=== PATIENT | female | born 1985 | race Hispanic/Latino ===

== ENCOUNTER 2021-05-04 21:42 | Inpatient (IN) | payer OTHER ==
[~2021-05-04] VITALS: Ht 149.9 cm; Wt 75.3 kg
[2021-05-04] MEDS ORDERED: SODIUM CHLORIDE 0.9% 1000ML 1,000 ML IV STA (21:54)
[2021-05-04] MEDS: FENTANYL CITRATE/PF 100MCG/2 ML INJ IV PRN ×2 (22:07→23:26)
[2021-05-04] MEDS: ONDANSETRON HCL INJ 2MG/ML 2ML 2 MG/ML VIAL IV PRN (22:07)
[2021-05-04 22:08] LABS: BASOPHILS % 0.5 % (0.0-1.0); EOSINOPHILS # (AUTO) 0.1 (0.0-0.4); EOSINOPHILS % 1.2 % (0.0-6.0); HEMATOCRIT 39.1 % (34.2-44.1); HEMOGLOBIN 12.1 g/dL (12.0-16.0); LYMPHOCYTES # (AUTO) 1.7 (1.0-3.2); LYMPHOCYTES % 20.1 % (18.0-39.1); MEAN CORPUSCULAR HEMOGLOBIN 24.3 pg (28-32); MEAN CORPUSCULAR HGB CONC 30.9 g/dL (31-35); MEAN CORPUSCULAR VOLUME 78.7 fL (81-99); MONOCYTES # (AUTO) 0.6 (0.2-0.8); MONOCYTES % 7.4 % (4.4-11.3); NEUTROPHILS # (AUTO) 6.1 (2.1-6.9); NEUTROPHILS % 70.6 % (38.7-80.0); PLATELET COUNT 293 x10e3/uL (140-360); RED BLOOD COUNT 4.97 x10e6/uL (3.6-5.1); RED CELL DISTRIBUTION WIDTH 17.2 % (11.7-14.4)
[2021-05-04] MEDS ORDERED: ONDANSETRON HCL INJ 2MG/ML 2ML 2 MG/ML VIAL ONE (22:09)
[2021-05-04] MEDS ORDERED: SODIUM CHLORIDE 0.9% 1000ML 1,000 ML ONE (22:09)
[2021-05-04] MEDS ORDERED: FENTANYL CITRATE/PF 100MCG/2 ML INJ ONE (22:09)
[2021-05-04 22:16] LABS: CLARITY,URINE CLOUDY (CLEAR); COLOR,URINE YELLOW (YELLOW); KETONES,URINE 2+ (NEGATIVE); LEUKOCYTE ESTERASE ,URINE 1+ (NEGATIVE); NITRITE,URINE NEGATIVE (NEGATIVE); PROTEIN,URINE DIPSTICK 1+ (NEGATIVE); URINE UROBILINOGEN 0.2 mg/dL (0.2 - 1)
[2021-05-04] MEDS ORDERED: DIATRIZOATE MEGL/DIATRIZOA SOD 30 ML BTL PO ONE (22:24)
[2021-05-04 22:25] LABS: ALBUMIN 4.1 g/dL (3.5-5.0); ALBUMIN/GLOBULIN RATIO 1.2 (0.8-2.0); ANION GAP 15.7 mmol/L (8-16); CALCIUM 9.2 mg/dL (8.4-10.2); CREATININE, SERUM 0.91 mg/dL (0.57-1.11); POTASSIUM 3.7 mmol/L (3.5-5.1)
[2021-05-04 22:35] LABS: BACTERIA,URINE MANY /HPF; EPITHELIAL CELLS,URINE MANY /LPF; MUCUS,URINE MANY (RARE); RBC,URINE >50 /HPF (0-5); TRANSITIONAL EPI CELLS,URINE MODERATE; WBC,URINE (MAN) >50 /HPF (0-5)
[2021-05-04] MEDS ORDERED: IOPAMIDOL 370 MG/ML 200 ML INFUS..BTL INJ ONE (23:31)
[2021-05-04] MEDS ORDERED: SODIUM CHLORIDE 0.9% 50ML 50 ML ONE (23:31)
[2021-05-05] VITALS (9 sets, daily range): BP systolic 89–125; BP diastolic 50–84
[2021-05-05] MEDS ORDERED: CEFTRIAXONE 1 GM VIAL IV ONE
[2021-05-05] MEDS ORDERED: CEFTRIAXONE 1 GM in SODIUM CHLORIDE 0.9% 50ML 50 ML IV ONE (00:01)
[2021-05-05] MEDS ORDERED: ONDANSETRON HCL INJ 2MG/ML 2ML 2 MG/ML VIAL IV PRN (00:30)
[2021-05-05] MEDS ORDERED: ZONISAMIDE100 MG PO (01:01)
[2021-05-05] MEDS: SODIUM CHLORIDE 0.9% 1000ML 1,000 ML IV SCH ×4 (02:13→23:36)
[2021-05-05] MEDS: Morphine 4mg Syringe 4 MG/ML INJ IV PRN ×4 (02:13→21:46)
[2021-05-05] MEDS: ONDANSETRON HCL INJ 2MG/ML 2ML 2 MG/ML VIAL IV PRN ×4 (03:26→17:41)
[2021-05-05] MEDS ORDERED: MULTI-VITAMIN1 EACH PO (04:23)
[2021-05-05] MEDS: PROMETHAZINE 12.5MG/ NACL 0.9% 12.5 MG/50 ML BAG IV PRN (07:19)
[2021-05-05] MEDS: ZONISAMIDE 50 MG CAP PO SCH (20:20)
[2021-05-05] MEDS: HEPARIN SOD (PORCINE) 5,000 UNIT/ML VIAL SC SCH (20:24)
[2021-05-05] MEDS ORDERED: DIPHENHYDRAMINE HCL 25 MG CAP PO PRN (22:00)
[2021-05-06] VITALS (9 sets, daily range): BP systolic 88–110; BP diastolic 53–80
[2021-05-06 05:27] LABS: BASOPHILS % 0.6 % (0.0-1.0); EOSINOPHILS # (AUTO) 0.2 (0.0-0.4); EOSINOPHILS % 3.7 % (0.0-6.0); HEMATOCRIT 37.5 % (34.2-44.1); HEMOGLOBIN 11.2 g/dL (12.0-16.0); LYMPHOCYTES # (AUTO) 1.8 (1.0-3.2); LYMPHOCYTES % 32.7 % (18.0-39.1); MEAN CORPUSCULAR HEMOGLOBIN 23.8 pg (28-32); MEAN CORPUSCULAR HGB CONC 29.9 g/dL (31-35); MEAN CORPUSCULAR VOLUME 79.8 fL (81-99); MONOCYTES # (AUTO) 0.4 (0.2-0.8); MONOCYTES % 7.9 % (4.4-11.3); NEUTROPHILS % 54.7 % (38.7-80.0); PLATELET COUNT 243 x10e3/uL (140-360); RED CELL DISTRIBUTION WIDTH 17.6 % (11.7-14.4)
[2021-05-06 06:00] LABS: ALBUMIN 3.3 g/dL (3.5-5.0); ALBUMIN/GLOBULIN RATIO 1.2 (0.8-2.0); ANION GAP 15.6 mmol/L (8-16); CALCIUM 8.6 mg/dL (8.4-10.2); CREATININE, SERUM 0.78 mg/dL (0.57-1.11); POTASSIUM 3.6 mmol/L (3.5-5.1)
[2021-05-06] MEDS ORDERED: DEXTROSE 50% SYRINGE 50 ML IV ONE (06:30)
[2021-05-06] MEDS: Morphine 4mg Syringe 4 MG/ML INJ IV PRN ×2 (06:42→10:45)
[2021-05-06] MEDS: DEXTROSE 5%/0.9% SOD CHL 1,000 ML IV SCH ×2 (06:46→14:08)
[2021-05-06] MEDS: HEPARIN SOD (PORCINE) 5,000 UNIT/ML VIAL SC SCH ×2 (09:00→20:08)
[2021-05-06] MEDS: ONDANSETRON HCL INJ 2MG/ML 2ML 2 MG/ML VIAL IV PRN (10:45)
[2021-05-06] MEDS: PROMETHAZINE 12.5MG/ NACL 0.9% 12.5 MG/50 ML BAG IV PRN (14:08)
[2021-05-06] MEDS ORDERED: ACETAMIN/BUTALBITAL/CAFFEINE TAB PO PRN (14:30)
[2021-05-06] MEDS ORDERED: NAPROXEN 250 MG TAB PO PRN (14:30)
[2021-05-06] MEDS: Morphine 2mg Syringe 2 MG/ML SYR IV PRN ×2 (18:20→22:32)
[2021-05-06] MEDS: ZONISAMIDE 50 MG CAP PO SCH (20:05)
[2021-05-07] VITALS (7 sets, daily range): BP systolic 90–110; BP diastolic 57–78
[2021-05-07] MEDS: DEXTROSE 5%/0.9% SOD CHL 1,000 ML IV SCH ×3 (00:02→18:09)
[2021-05-07] MEDS: Morphine 2mg Syringe 2 MG/ML SYR IV PRN ×4 (02:45→21:25)
[2021-05-07] MEDS: HEPARIN SOD (PORCINE) 5,000 UNIT/ML VIAL SC SCH ×2 (09:00→20:20)
[2021-05-07] MEDS ORDERED: BUPIVACAINE HCL 0.5% INJ 30 ML VIAL INJ ONE (09:15)
[2021-05-07] MEDS ORDERED: ACETAMINOPHEN 1000 MG/100 ML 100 ML IV ONE (11:50)
[2021-05-07] MEDS ORDERED: LIDOCAINE HCL 2% LOCAL INJ 5 ML SDV VIAL INJ ONE (12:01)
[2021-05-07] MEDS ORDERED: KETOROLAC TROMETHAMINE 30 MG/ML VIAL ONE (12:01)
[2021-05-07] MEDS ORDERED: ONDANSETRON HCL INJ 2MG/ML 2ML 2 MG/ML VIAL ONE (12:01)
[2021-05-07] MEDS ORDERED: ROCURONIUM BROMIDE 10 MG/ML 5ML VIAL IV ONE (12:01)
[2021-05-07] MEDS ORDERED: NEOSTIGMINE 1 MG/ML 10ML VIAL ONE (12:01)
[2021-05-07] MEDS ORDERED: SEVOFLURANE INHAL SOLN 250 ML PEN BTL ONE (12:01)
[2021-05-07] MEDS ORDERED: DEXAMETHASONE SOD PHOS INJ 4 MG/ML SDV ONE (12:01)
[2021-05-07] MEDS ORDERED: PROPOFOL IV EMULSION 10 MG/ML 20 ML VIAL ONE (12:01)
[2021-05-07] MEDS ORDERED: POVIDONE IODINE 0.05% 0.05 % ML PO ONE (12:01)
[2021-05-07] MEDS ORDERED: GLYCOPYRROLATE INJ 0.2 MG/ML VIAL ONE (12:01)
[2021-05-07] MEDS ORDERED: HYDROMORPHONE 1MG/1ML INJ ONE (12:03)
[2021-05-07] MEDS ORDERED: FENTANYL CITRATE/PF 100MCG/2 ML INJ ONE (12:16)
[2021-05-07] MEDS ORDERED: MIDAZOLAM HCL 2 MG/2 ML VIAL ONE (12:16)
[2021-05-07] MEDS ORDERED: MEPERIDINE HCL INJ 25 MG/ML VIAL ONE (14:03)
[2021-05-07] MEDS: ONDANSETRON HCL INJ 2MG/ML 2ML 2 MG/ML VIAL IV PRN (17:05)
[2021-05-07] MEDS: HYDROCODONE/APAP 7.5MG-325MG 1 EA TAB PO PRN (18:14)
[2021-05-07] MEDS: PROMETHAZINE 12.5MG/ NACL 0.9% 12.5 MG/50 ML BAG IV PRN (20:20)
[2021-05-07] MEDS: ZONISAMIDE 50 MG CAP PO SCH (21:00)
[2021-05-08] VITALS (8 sets, daily range): BP systolic 94–105; BP diastolic 55–81
[2021-05-08] MEDS: HYDROCODONE/APAP 7.5MG-325MG 1 EA TAB PO PRN (00:49)
[2021-05-08] MEDS: Morphine 2mg Syringe 2 MG/ML SYR IV PRN ×3 (01:26→20:34)
[2021-05-08] MEDS: DEXTROSE 5%/0.9% SOD CHL 1,000 ML IV SCH ×4 (02:21→23:36)
[2021-05-08 05:06] LABS: BASOPHILS % 0.1 % (0.0-1.0); EOSINOPHILS % 0.1 % (0.0-6.0); HEMATOCRIT 34.2 % (34.2-44.1); HEMOGLOBIN 10.6 g/dL (12.0-16.0); LYMPHOCYTES # (AUTO) 1.5 (1.0-3.2); LYMPHOCYTES % 20.3 % (18.0-39.1); MEAN CORPUSCULAR HEMOGLOBIN 24.3 pg (28-32); MEAN CORPUSCULAR VOLUME 78.3 fL (81-99); MONOCYTES # (AUTO) 0.6 (0.2-0.8); MONOCYTES % 8.1 % (4.4-11.3); NEUTROPHILS # (AUTO) 5.1 (2.1-6.9); NEUTROPHILS % 71.1 % (38.7-80.0); PLATELET COUNT 236 x10e3/uL (140-360); RED BLOOD COUNT 4.37 x10e6/uL (3.6-5.1)
[2021-05-08 05:39] LABS: ANION GAP 10.2 mmol/L (8-16); BLOOD UREA NITROGEN < 5 mg/dL (7-26); CALCIUM 8.1 mg/dL (8.4-10.2); CARBON DIOXIDE 17 mmol/L (22-29); CHLORIDE 116 mmol/L (98-107); EST GLOMERULAR FILTRATION RATE 96 ML/MIN (60-); GLUCOSE 112 mg/dL (74-118); POTASSIUM 3.2 mmol/L (3.5-5.1); SODIUM 140 mmol/L (136-145)
[2021-05-08 05:49] LABS: BUN/CREATININE RATIO 7 (6-25)
[2021-05-08] MEDS: HEPARIN SOD (PORCINE) 5,000 UNIT/ML VIAL SC SCH ×2 (08:59→20:34)
[2021-05-08] MEDS: ONDANSETRON HCL INJ 2MG/ML 2ML 2 MG/ML VIAL IV PRN ×3 (09:30→20:34)
[2021-05-08] MEDS: TRAMADOL HCL 50 MG TAB PO PRN ×2 (12:02→19:40)
[2021-05-08] MEDS: ZONISAMIDE 50 MG CAP PO SCH (20:34)
[2021-05-09] MEDS: Morphine 2mg Syringe 2 MG/ML SYR IV PRN ×2 (00:41→15:48)
[2021-05-09] MEDS: ONDANSETRON HCL INJ 2MG/ML 2ML 2 MG/ML VIAL IV PRN ×3 (00:41→15:48)
[2021-05-09 00:56] VITALS: BP 112/65
[2021-05-09] MEDS: HYDROCODONE/APAP 7.5MG-325MG 1 EA TAB PO PRN ×2 (02:56→18:40)
[2021-05-09 05:56] VITALS: BP 92/61
[2021-05-09] MEDS: DEXTROSE 5%/0.9% SOD CHL 1,000 ML IV SCH ×2 (08:08→15:48)
[2021-05-09] MEDS: HEPARIN SOD (PORCINE) 5,000 UNIT/ML VIAL SC SCH ×2 (09:52→21:04)
[2021-05-09 09:54] VITALS: BP 94/55
[2021-05-09] MEDS: PROMETHAZINE 12.5MG/ NACL 0.9% 12.5 MG/50 ML BAG IV PRN (11:18)
[2021-05-09] MEDS ORDERED: BISACODYL 10 MG SUPP PR ONE (13:30)
[2021-05-09 20:00] VITALS: BP 100/66
[2021-05-10] VITALS: BP 98/70
[2021-05-10] MEDS: ZONISAMIDE 50 MG CAP PO SCH (01:35)
[2021-05-10 04:00] VITALS: BP 102/66
[2021-05-10 05:10] LABS: BASOPHILS % 0.5 % (0.0-1.0); EOSINOPHILS # (AUTO) 0.3 (0.0-0.4); HEMATOCRIT 34.3 % (34.2-44.1); HEMOGLOBIN 11.1 g/dL (12.0-16.0); LYMPHOCYTES # (AUTO) 2.4 (1.0-3.2); LYMPHOCYTES % 38.7 % (18.0-39.1); MEAN CORPUSCULAR HEMOGLOBIN 24.3 pg (28-32); MEAN CORPUSCULAR HGB CONC 32.4 g/dL (31-35); MEAN CORPUSCULAR VOLUME 75.2 fL (81-99); MONOCYTES # (AUTO) 0.6 (0.2-0.8); MONOCYTES % 8.9 % (4.4-11.3); NEUTROPHILS % 47.6 % (38.7-80.0); PLATELET COUNT 234 x10e3/uL (140-360); RED BLOOD COUNT 4.56 x10e6/uL (3.6-5.1); RED CELL DISTRIBUTION WIDTH 18.8 % (11.7-14.4)
[2021-05-10 05:55] LABS: ANION GAP 11.1 mmol/L (8-16); BLOOD UREA NITROGEN < 5 mg/dL (7-26); CALCIUM 8.3 mg/dL (8.4-10.2); CARBON DIOXIDE 16 mmol/L (22-29); CHLORIDE 116 mmol/L (98-107); CREATININE, SERUM 0.72 mg/dL (0.57-1.11); EST GLOMERULAR FILTRATION RATE 93 ML/MIN (60-); GLUCOSE 90 mg/dL (74-118); POTASSIUM 3.1 mmol/L (3.5-5.1); SODIUM 140 mmol/L (136-145)
[2021-05-10 06:14] LABS: BUN/CREATININE RATIO 7 (6-25)
[2021-05-10 06:37] VITALS: BP 102/66
[2021-05-10 07:28] VITALS: BP 98/65
[2021-05-10 08:00] VITALS: BP 98/65
[2021-05-10] MEDS: DEXTROSE 5%/0.9% SOD CHL 1,000 ML IV SCH (08:32)
[2021-05-10] MEDS: HEPARIN SOD (PORCINE) 5,000 UNIT/ML VIAL SC SCH (09:00)
[2021-05-10 11:14] VITALS: BP 101/71
[2021-05-10] MEDS ORDERED: POTASSIUM CHLORIDE 20 MEQ TAB CR PO ONE (14:00)
[2021-05-10] MEDS: HYDROCODONE/APAP 7.5MG-325MG 1 EA TAB PO PRN (19:10)
== END 2021-05-10 19:00 | disposition home or self-care (01) | DRG 419 ==
LOC: ER 21:55 → ERHOLD 05-05 00:46 → MED/SURG2 05-05 03:00
PROVIDERS: ADMIT Internal Medicine; ATTEND Internal Medicine
PROC: 0FT44ZZ Resection of Gallbladder, Percutaneous Endoscopic Approach (ICD-10-PCS; principal; 2021-05-07 11:00)
DX: K81.0 Acute cholecystitis (principal); E66.9 Obesity, unspecified; G40.909 Epilepsy, unspecified, not intractable, without status epilepticus; Z72.0 Tobacco use; Z98.84 Bariatric surgery status; Z68.33 Body mass index [BMI] 33.0-33.9, adult; E16.2 Hypoglycemia, unspecified; Z20.822 Contact with and (suspected) exposure to COVID-19
CPT/HCPCS: 36415; 74177; 76705; 78227; 80048; 80053; 81001; 82948; 83690; 84702; 85025; 87086; 88304; 94799; 96360; 99284; A9537; J0690; J0696; J1100; J1170; J1644; J1885; J2001; J2175; J2250; J2270; J2405; J2550; J2710; J3010; J7030; J7042; J7799; Q9967; U0002

== ENCOUNTER 2021-08-02 23:31 | Emergency (ER) | payer BC, OTHER ==
[~2021-08-02] VITALS: Ht 149.9 cm; Wt 72.1 kg
[~2021-08-02 23:31] MED LIST: MULTI-VITAMIN1 EACH PO; ZONISAMIDE100 MG PO
[2021-08-03 00:03] LABS: BASOPHILS % 0.3 % (0.0-1.0); EOSINOPHILS # (AUTO) 0.1 (0.0-0.4); EOSINOPHILS % 1.4 % (0.0-6.0); HEMATOCRIT 35.7 % (34.2-44.1); HEMOGLOBIN 11.4 g/dL (12.0-16.0); LYMPHOCYTES # (AUTO) 2.8 (1.0-3.2); LYMPHOCYTES % 29.6 % (18.0-39.1); MEAN CORPUSCULAR HEMOGLOBIN 25.1 pg (28-32); MEAN CORPUSCULAR HGB CONC 31.9 g/dL (31-35); MEAN CORPUSCULAR VOLUME 78.5 fL (81-99); MONOCYTES # (AUTO) 0.6 (0.2-0.8); MONOCYTES % 5.9 % (4.4-11.3); NEUTROPHILS # (AUTO) 5.9 (2.1-6.9); NEUTROPHILS % 62.6 % (38.7-80.0); PLATELET COUNT 341 x10e3/uL (140-360); RED BLOOD COUNT 4.55 x10e6/uL (3.6-5.1); RED CELL DISTRIBUTION WIDTH 17.2 % (11.7-14.4)
[2021-08-03 00:17] LABS: CLARITY,URINE CLOUDY (CLEAR); COLOR,URINE YELLOW (YELLOW); KETONES,URINE NEGATIVE (NEGATIVE); LEUKOCYTE ESTERASE ,URINE SMALL (NEGATIVE); NITRITE,URINE NEGATIVE (NEGATIVE); PROTEIN,URINE DIPSTICK NEGATIVE (NEGATIVE); URINE UROBILINOGEN 0.2 mg/dL (0.2 - 1)
[2021-08-03 00:21] LABS: AMORPHOUS SEDIMENT,URINE MANY (FEW); BACTERIA,URINE FEW /HPF; EPITHELIAL CELLS,URINE MANY /LPF; RBC,URINE 0-5 /HPF (0-5)
[2021-08-03 00:24] LABS: ALBUMIN 3.5 g/dL (3.5-5.0); ALBUMIN/GLOBULIN RATIO 1.1 (0.8-2.0); ANION GAP 10.4 mmol/L (8-16); CALCIUM 7.9 mg/dL (8.4-10.2); CREATININE, SERUM 0.78 mg/dL (0.57-1.11); POTASSIUM 3.4 mmol/L (3.5-5.1)
[2021-08-03] MEDS ORDERED: KETOROLAC TROMETHAMINE 30 MG/ML VIAL IV STA (00:27)
[2021-08-03] MEDS ORDERED: IOPAMIDOL 370 MG/ML 100 ML INFUS..BTL INJ ONE (00:39)
[2021-08-03] MEDS ORDERED: ONDANSETRON HCL INJ 2MG/ML 2ML 2 MG/ML VIAL IV STA (00:58)
[2021-08-03] MEDS ORDERED: Morphine 4mg Syringe 4 MG/ML INJ IV STA (00:58)
[2021-08-03] MEDS ORDERED: ONDANSETRON HCL INJ 2MG/ML 2ML 2 MG/ML VIAL ONE (01:24)
[2021-08-03] MEDS ORDERED: Morphine 2mg Syringe 2 MG/ML SYR ONE (01:25)
[2021-08-03] MEDS ORDERED: HYDROMORPHONE 1MG/1ML INJ IV STA (01:47)
[2021-08-03 02:01] LABS: AMPHETAMINES SCREEN,URINE NEGATIVE (NEGATIVE); BENZODIAZEPINES SCREEN,URINE NEGATIVE (NEGATIVE); PHENCYCLIDINE SCREEN,URINE NEGATIVE (NEGATIVE)
[2021-08-03] MEDS ORDERED: HYDROMORPHONE 1MG/1ML INJ ONE (02:03)
[2021-08-03 02:21] LABS: CREATINE KINASE 29 IU/L (29-168)
[2021-08-03] MEDS ORDERED: ACETAMINOPHEN-1 EAC4 PO (03:36)
[2021-08-03] MEDS ORDERED: ONDANSETRON ODT4 MG PO (03:36)
== END 2021-08-03 04:00 | disposition home or self-care (01) ==
LOC: ER 23:35
DX: R10.32 Left lower quadrant pain (principal); N83.202 Unspecified ovarian cyst, left side; N83.201 Unspecified ovarian cyst, right side; G40.909 Epilepsy, unspecified, not intractable, without status epilepticus; Z98.84 Bariatric surgery status; R94.31 Abnormal electrocardiogram [ECG] [EKG]
CPT/HCPCS: 36415; 74177; 76830; 76856; 80053; 80307; 81001; 82550; 82553; 83690; 84484; 84702; 85025; 93005; 99284; J1170; J1885; J2270; J2405; Q9967

== ENCOUNTER 2021-08-06 22:42 | Emergency (ER) | payer BC, OTHER ==
[~2021-08-06] VITALS: Ht 149.9 cm; Wt 72.1 kg
[~2021-08-06 22:42] MED LIST changes: +ACETAMINOPHEN-1 EAC4 PO; +ONDANSETRON ODT4 MG PO
[2021-08-06 23:46] LABS: CLARITY,URINE CLOUDY (CLEAR); COLOR,URINE YELLOW (YELLOW); KETONES,URINE NEGATIVE (NEGATIVE); LEUKOCYTE ESTERASE ,URINE NEGATIVE (NEGATIVE); NITRITE,URINE NEGATIVE (NEGATIVE); PROTEIN,URINE DIPSTICK NEGATIVE (NEGATIVE)
[2021-08-06 23:53] LABS: AMORPHOUS SEDIMENT,URINE MANY (FEW); BACTERIA,URINE FEW /HPF; EPITHELIAL CELLS,URINE MANY /LPF; RBC,URINE 0-5 /HPF (0-5); WBC,URINE (MAN) 0-5 /HPF (0-5)
[2021-08-07 00:59] LABS: BASOPHILS % 0.3 % (0.0-1.0); EOSINOPHILS # (AUTO) 0.1 (0.0-0.4); EOSINOPHILS % 1.8 % (0.0-6.0); HEMATOCRIT 37.4 % (34.2-44.1); HEMOGLOBIN 11.8 g/dL (12.0-16.0); LYMPHOCYTES # (AUTO) 1.5 (1.0-3.2); LYMPHOCYTES % 22.3 % (18.0-39.1); MEAN CORPUSCULAR HEMOGLOBIN 25.1 pg (28-32); MEAN CORPUSCULAR HGB CONC 31.6 g/dL (31-35); MEAN CORPUSCULAR VOLUME 79.4 fL (81-99); MONOCYTES # (AUTO) 0.5 (0.2-0.8); MONOCYTES % 7.3 % (4.4-11.3); NEUTROPHILS # (AUTO) 4.5 (2.1-6.9); NEUTROPHILS % 68.1 % (38.7-80.0); PLATELET COUNT 278 x10e3/uL (140-360); RED BLOOD COUNT 4.71 x10e6/uL (3.6-5.1); RED CELL DISTRIBUTION WIDTH 17.4 % (11.7-14.4)
[2021-08-07 01:16] LABS: ALBUMIN 3.3 g/dL (3.5-5.0); ANION GAP 11.3 mmol/L (8-16); CALCIUM 8.5 mg/dL (8.4-10.2); CREATININE, SERUM 0.78 mg/dL (0.57-1.11); POTASSIUM 3.3 mmol/L (3.5-5.1)
[2021-08-07] MEDS ORDERED: DONNATAL/LIDOCAINE/MAALOX 30 ML SUSP PO SCH (09:00)
== END 2021-08-07 02:25 | disposition home or self-care (01) ==
LOC: ER 23:28
DX: R10.13 Epigastric pain (principal); N83.202 Unspecified ovarian cyst, left side; N83.201 Unspecified ovarian cyst, right side; G40.909 Epilepsy, unspecified, not intractable, without status epilepticus; Z98.84 Bariatric surgery status
CPT/HCPCS: 36415; 80053; 81001; 83690; 84702; 85025; 99283

== ENCOUNTER 2021-09-29 19:02 | Inpatient (IN) | payer BC, OTHER ==
[~2021-09-29] VITALS: Ht 149.9 cm; Wt 72.1 kg
[2021-09-29 19:46] LABS: AMPHETAMINES SCREEN,URINE NEGATIVE (NEGATIVE); BENZODIAZEPINES SCREEN,URINE NEGATIVE (NEGATIVE); CLARITY,URINE CLOUDY (CLEAR); COLOR,URINE YELLOW (YELLOW); PHENCYCLIDINE SCREEN,URINE NEGATIVE (NEGATIVE)
[2021-09-29 19:47] LABS: KETONES,URINE NEGATIVE (NEGATIVE); LEUKOCYTE ESTERASE ,URINE 1+ (NEGATIVE); NITRITE,URINE NEGATIVE (NEGATIVE); PROTEIN,URINE DIPSTICK NEGATIVE (NEGATIVE)
[2021-09-29 19:48] LABS: URINE UROBILINOGEN 1 mg/dL (0.2 - 1)
[2021-09-29 19:50] LABS: BACTERIA,URINE MANY /HPF; CALCIUM OXALATE CRYSTALS,UR MANY (FEW); EPITHELIAL CELLS,URINE FEW /LPF; RBC,URINE >50 /HPF (0-5); WBC,URINE (MAN) >50 /HPF (0-5)
[2021-09-29] MEDS ORDERED: KETOROLAC TROMETHAMINE 30 MG/ML VIAL IV STA (19:50)
[2021-09-29] MEDS ORDERED: ONDANSETRON HCL INJ 2MG/ML 2ML 2 MG/ML VIAL IV STA ×2 (19:50→20:20)
[2021-09-29 19:55] LABS: BASOPHILS % 0.5 % (0.0-1.0); EOSINOPHILS # (AUTO) 0.1 (0.0-0.4); EOSINOPHILS % 2.3 % (0.0-6.0); HEMATOCRIT 38.7 % (34.2-44.1); HEMOGLOBIN 11.9 g/dL (12.0-16.0); LYMPHOCYTES # (AUTO) 1.8 (1.0-3.2); LYMPHOCYTES % 40.9 % (18.0-39.1); MEAN CORPUSCULAR HEMOGLOBIN 25.8 pg (28-32); MEAN CORPUSCULAR HGB CONC 30.7 g/dL (31-35); MEAN CORPUSCULAR VOLUME 83.9 fL (81-99); MONOCYTES # (AUTO) 0.4 (0.2-0.8); MONOCYTES % 8.2 % (4.4-11.3); NEUTROPHILS # (AUTO) 2.1 (2.1-6.9); NEUTROPHILS % 47.9 % (38.7-80.0); PLATELET COUNT 254 x10e3/uL (140-360); RED BLOOD COUNT 4.61 x10e6/uL (3.6-5.1)
[2021-09-29] MEDS ORDERED: SODIUM CHLORIDE 0.9% 1000ML 1,000 ML IV ONE (20:00)
[2021-09-29 20:12] LABS: ALBUMIN 3.4 g/dL (3.5-5.0); ALBUMIN/GLOBULIN RATIO 1.1 (0.8-2.0); ANION GAP 12.5 mmol/L (8-16); CALCIUM 8.3 mg/dL (8.4-10.2); CREATININE, SERUM 0.8 mg/dL (0.57-1.11); POTASSIUM 3.5 mmol/L (3.5-5.1)
[2021-09-29] MEDS ORDERED: Morphine 4mg INJECTION 4 MG/ML INJ IV ONE (20:30)
[2021-09-29] MEDS ORDERED: ONDANSETRON HCL INJ 2MG/ML 2ML 2 MG/ML VIAL ONE (20:35)
[2021-09-29] MEDS ORDERED: Morphine 4mg INJECTION 4 MG/ML INJ ONE (20:35)
[2021-09-29] MEDS ORDERED: IOPAMIDOL 370 MG/ML 100 ML INFUS..BTL INJ ONE (20:48)
[2021-09-29] MEDS ORDERED: PROMETHAZINE 12.5MG/ NACL 0.9% 12.5 MG/50 ML BAG IV ONE ×2 (22:15)
[2021-09-29] MEDS ORDERED: FENTANYL CITRATE/PF 100MCG/2 ML INJ IV ONE (22:15)
[2021-09-29] MEDS ORDERED: FENTANYL CITRATE/PF 100MCG/2 ML INJ ONE (22:30)
[2021-09-30] VITALS (9 sets, daily range): BP systolic 100–129; BP diastolic 62–82
[2021-09-30] MEDS ORDERED: PROMETHAZINE 12.5MG/ NACL 0.9% 12.5 MG/50 ML BAG IV PRN
[2021-09-30] MEDS ORDERED: Morphine 4mg INJECTION 4 MG/ML INJ IV PRN
[2021-09-30] MEDS: SODIUM CHLORIDE 0.9% 1000ML 1,000 ML IV SCH ×3 (01:20→16:00)
[2021-09-30] MEDS: ONDANSETRON HCL INJ 2MG/ML 2ML 2 MG/ML VIAL IV PRN (01:39)
[2021-09-30] MEDS: HYDROMORPHONE 1MG/1ML INJ IV PRN ×6 (03:22→20:45)
[2021-09-30] MEDS: ACETAMINOPHEN 325 MG TAB PO PRN ×3 (05:36→16:39)
[2021-09-30 05:47] LABS: BASOPHILS % 0.5 % (0.0-1.0); EOSINOPHILS # (AUTO) 0.1 (0.0-0.4); EOSINOPHILS % 2.3 % (0.0-6.0); HEMATOCRIT 38.2 % (34.2-44.1); HEMOGLOBIN 11.5 g/dL (12.0-16.0); LYMPHOCYTES # (AUTO) 1.5 (1.0-3.2); LYMPHOCYTES % 37.2 % (18.0-39.1); MEAN CORPUSCULAR HEMOGLOBIN 26.1 pg (28-32); MEAN CORPUSCULAR HGB CONC 30.1 g/dL (31-35); MEAN CORPUSCULAR VOLUME 86.6 fL (81-99); MONOCYTES # (AUTO) 0.2 (0.2-0.8); MONOCYTES % 5.6 % (4.4-11.3); NEUTROPHILS # (AUTO) 2.1 (2.1-6.9); NEUTROPHILS % 54.4 % (38.7-80.0); PLATELET COUNT 217 x10e3/uL (140-360); RED BLOOD COUNT 4.41 x10e6/uL (3.6-5.1)
[2021-09-30 06:08] LABS: ANION GAP 10.7 mmol/L (8-16); CREATININE, SERUM 0.75 mg/dL (0.57-1.11); POTASSIUM 3.7 mmol/L (3.5-5.1)
[2021-09-30 06:09] LABS: ALBUMIN/GLOBULIN RATIO 1.1 (0.8-2.0)
[2021-09-30] MEDS: LACTATED RINGER'S 1,000 ML INJ SCH (20:46)
[2021-09-30] MEDS ORDERED: ZONEGRAN100 MG PO (22:43)
[2021-09-30] MEDS: ZONISAMIDE 50 MG CAP PO SCH (23:15)
[2021-10-01] VITALS (7 sets, daily range): BP systolic 99–116; BP diastolic 62–85
[2021-10-01] MEDS: HYDROMORPHONE 1MG/1ML INJ IV PRN ×6 (00:07→21:54)
[2021-10-01] MEDS: METOCLOPRAMIDE HCL 10 MG/2ML VIAL IV SCH ×4 (00:08→18:00)
[2021-10-01 06:04] LABS: BASOPHILS % 0.4 % (0.0-1.0); EOSINOPHILS # (AUTO) 0.1 (0.0-0.4); EOSINOPHILS % 2.3 % (0.0-6.0); HEMOGLOBIN 11.4 g/dL (12.0-16.0); LYMPHOCYTES # (AUTO) 1.9 (1.0-3.2); MEAN CORPUSCULAR HEMOGLOBIN 26.1 pg (28-32); MONOCYTES # (AUTO) 0.3 (0.2-0.8); MONOCYTES % 6.5 % (4.4-11.3); NEUTROPHILS # (AUTO) 2.9 (2.1-6.9); NEUTROPHILS % 54.6 % (38.7-80.0); PLATELET COUNT 220 x10e3/uL (140-360); RED BLOOD COUNT 4.37 x10e6/uL (3.6-5.1); RED CELL DISTRIBUTION WIDTH 19.7 % (11.7-14.4)
[2021-10-01 06:27] LABS: % IRON SATURATION 9 % (15-50); ALANINE AMINOTRANSFERASE 122 IU/L (0-55); ALKALINE PHOSPHATASE 164 IU/L (40-150); ANION GAP 11.6 mmol/L (8-16); BILIRUBIN,DIRECT 0.2 mg/dL (0.0-0.5); BLOOD UREA NITROGEN < 5 mg/dL (7-26); CALCIUM 8.2 mg/dL (8.4-10.2); CARBON DIOXIDE 23 mmol/L (22-29); CHLORIDE 112 mmol/L (98-107); CREATININE, SERUM 0.73 mg/dL (0.57-1.11); GLUCOSE 87 mg/dL (74-118); INR 0.91; IRON 31 ug/dL (50-170); POTASSIUM 3.6 mmol/L (3.5-5.1); PROTHROMBIN TIME 13.1 seconds (11.9-14.5); SODIUM 143 mmol/L (136-145); TOTAL IRON BINDING CAPACITY 340 ug/dL (261-478); TRANSFERRIN 243 mg/dL (180-382)
[2021-10-01 06:28] LABS: BUN/CREATININE RATIO 7 (6-25)
[2021-10-01] MEDS: LACTATED RINGER'S 1,000 ML INJ SCH ×2 (08:35→20:33)
[2021-10-01] MEDS ORDERED: IRON SUCROSE 100 MG in SODIUM CHLORIDE 0.9% 100 ML 100 ML IV SCH (11:30)
[2021-10-01] MEDS ORDERED: GADOBENATE DIMEGLUMINE 1 ML IV ONE (11:47)
[2021-10-01] MEDS: IRON SUCROSE 100 MG in SODIUM CHLORIDE 0.9% 100 ML IV SCH (15:06)
[2021-10-01] MEDS: ZONISAMIDE 50 MG CAP PO SCH (20:33)
[2021-10-01] MEDS: ONDANSETRON HCL INJ 2MG/ML 2ML 2 MG/ML VIAL IV PRN (21:53)
[2021-10-01] MEDS: ACETAMINOPHEN 325 MG TAB PO PRN (23:13)
[2021-10-02] VITALS (7 sets, daily range): BP systolic 89–105; BP diastolic 50–69
[2021-10-02] MEDS: METOCLOPRAMIDE HCL 10 MG/2ML VIAL IV SCH ×4 (00:50→17:17)
[2021-10-02] MEDS: HYDROMORPHONE 1MG/1ML INJ IV PRN ×5 (00:50→22:00)
[2021-10-02] MEDS: ONDANSETRON HCL INJ 2MG/ML 2ML 2 MG/ML VIAL IV PRN ×3 (00:50→22:00)
[2021-10-02 06:23] LABS: BASOPHILS % 0.4 % (0.0-1.0); EOSINOPHILS # (AUTO) 0.2 (0.0-0.4); EOSINOPHILS % 3.3 % (0.0-6.0); HEMATOCRIT 34.6 % (34.2-44.1); HEMOGLOBIN 10.7 g/dL (12.0-16.0); LYMPHOCYTES # (AUTO) 1.2 (1.0-3.2); LYMPHOCYTES % 26.6 % (18.0-39.1); MEAN CORPUSCULAR HEMOGLOBIN 26.1 pg (28-32); MEAN CORPUSCULAR HGB CONC 30.9 g/dL (31-35); MEAN CORPUSCULAR VOLUME 84.4 fL (81-99); MONOCYTES # (AUTO) 0.3 (0.2-0.8); MONOCYTES % 5.5 % (4.4-11.3); NEUTROPHILS # (AUTO) 2.9 (2.1-6.9); PLATELET COUNT 179 x10e3/uL (140-360); RED CELL DISTRIBUTION WIDTH 19.6 % (11.7-14.4)
[2021-10-02 07:04] LABS: ALANINE AMINOTRANSFERASE 83 IU/L (0-55); ALBUMIN 2.7 g/dL (3.5-5.0); ALKALINE PHOSPHATASE 147 IU/L (40-150); ANION GAP 12.6 mmol/L (8-16); BILIRUBIN,DIRECT 0.2 mg/dL (0.0-0.5); BLOOD UREA NITROGEN < 5 mg/dL (7-26); BUN/CREATININE RATIO 7 (6-25); CALCIUM 8.1 mg/dL (8.4-10.2); CARBON DIOXIDE 22 mmol/L (22-29); CHLORIDE 111 mmol/L (98-107); CREATININE, SERUM 0.74 mg/dL (0.57-1.11); GLUCOSE 89 mg/dL (74-118); POTASSIUM 3.6 mmol/L (3.5-5.1); SODIUM 142 mmol/L (136-145)
[2021-10-02] MEDS: IRON SUCROSE 100 MG in SODIUM CHLORIDE 0.9% 100 ML IV SCH (12:08)
[2021-10-02] MEDS ORDERED: LIDOCAINE HCL 2% LOCAL INJ 5 ML SDV VIAL INJ ONE (12:58)
[2021-10-02] MEDS ORDERED: POVIDONE IODINE 0.05% 0.05 % ML PO ONE (12:58)
[2021-10-02] MEDS ORDERED: PROPOFOL IV EMULSION 10 MG/ML 20 ML VIAL ONE (12:58)
[2021-10-02] MEDS ORDERED: FENTANYL CITRATE/PF 100MCG/2 ML INJ ONE (13:23)
[2021-10-02] MEDS: SUCRALFATE 1 GM/10 ML SUSP PO SCH ×2 (17:17→20:39)
[2021-10-02] MEDS: ZONISAMIDE 50 MG CAP PO SCH (20:39)
[2021-10-03] VITALS (7 sets, daily range): BP systolic 95–105; BP diastolic 60–77
[2021-10-03] MEDS: METOCLOPRAMIDE HCL 10 MG/2ML VIAL IV SCH ×5 (06:00→23:28)
[2021-10-03] MEDS: HYDROMORPHONE 1MG/1ML INJ IV PRN ×3 (09:47→20:39)
[2021-10-03] MEDS: SUCRALFATE 1 GM/10 ML SUSP PO SCH ×4 (09:50→20:16)
[2021-10-03] MEDS: IRON SUCROSE 100 MG in SODIUM CHLORIDE 0.9% 100 ML IV SCH (14:22)
[2021-10-03] MEDS ORDERED: IOPAMIDOL 370 MG/ML 100 ML INFUS..BTL INJ ONE (16:11)
[2021-10-03] MEDS: ZONISAMIDE 50 MG CAP PO SCH (20:16)
[2021-10-03] MEDS: ONDANSETRON HCL INJ 2MG/ML 2ML 2 MG/ML VIAL IV PRN (20:39)
[2021-10-03] MEDS ORDERED: MAGNESIUM HYDROXIDE 30 ML UDC PO ONE (23:45)
[2021-10-04] VITALS (8 sets, daily range): BP systolic 91–115; BP diastolic 53–74
[2021-10-04] MEDS: METOCLOPRAMIDE HCL 10 MG/2ML VIAL IV SCH ×3 (06:00→17:54)
[2021-10-04] MEDS ORDERED: CITRATE OF MAGNESIA 300ML BOTTLE PO ONE (07:00)
[2021-10-04] MEDS: SUCRALFATE 1 GM/10 ML SUSP PO SCH ×4 (09:16→21:16)
[2021-10-04] MEDS: HYDROMORPHONE 1MG/1ML INJ IV PRN ×2 (10:07→17:53)
[2021-10-04] MEDS: ACETAMINOPHEN 325 MG TAB PO PRN (13:37)
[2021-10-04] MEDS ORDERED: MELATONIN 3 MG TAB PO PRN (14:00)
[2021-10-04] MEDS ORDERED: ACETAMINOPHEN/CODEINE 300MG - 30MG TAB PO PRN ×2 (14:00→23:00)
[2021-10-04] MEDS ORDERED: MAGNESIUM/ALUMINUM/SIMETHICONE 30 ML UDC PO PRN (14:00)
[2021-10-04] MEDS ORDERED: REGLAN10 MG PO (14:03)
[2021-10-04] MEDS ORDERED: ONDANSETRON ODT4 MG PO (14:03)
[2021-10-04] MEDS ORDERED: PANTOPRAZOLE SO40 MG PO (14:03)
[2021-10-04] MEDS ORDERED: CARAFATE1 GM PO (14:03)
[2021-10-04] MEDS ORDERED: PANTOPRAZOLE SOD 40 MG TABEC PO SCH (17:00)
[2021-10-04] MEDS: ONDANSETRON HCL INJ 2MG/ML 2ML 2 MG/ML VIAL IV PRN (17:53)
[2021-10-04] MEDS: ZONISAMIDE 50 MG CAP PO SCH (21:16)
[2021-10-04] MEDS ORDERED: ACETAMINOPHEN/CODEINE 300MG - 30MG TAB PO ONE (23:09)
[2021-10-04] MEDS ORDERED: NALOXONE HCL INJ 0.4 MG/ML AMP IV PRN (23:45)
[2021-10-04] MEDS ORDERED: HYDROMORPHONE 1MG/1ML INJ IV ONE (23:45)
[2021-10-04] MEDS ORDERED: HYDROMORPHONE 0.2MG/ML-SOD CHL 30ML PCA SYRINGE IV STA (23:47)
[2021-10-04] MEDS ORDERED: MAGNESIUM HYDROXIDE 30 ML UDC PO ONE (23:49)
[2021-10-04] MEDS ORDERED: ONDANSETRON HCL INJ 2MG/ML 2ML 2 MG/ML VIAL IV STA (23:55)
[2021-10-05] VITALS: BP 110/78
[2021-10-05] MEDS: METOCLOPRAMIDE HCL 10 MG/2ML VIAL IV SCH ×3 (00:18→12:00)
[2021-10-05] MEDS ORDERED: HYDROMORPHONE 1MG/1ML INJ IV STA (00:42)
[2021-10-05 01:52] LABS: BASOPHILS % 0.3 % (0.0-1.0); EOSINOPHILS # (AUTO) 0.1 (0.0-0.4); EOSINOPHILS % 0.8 % (0.0-6.0); HEMATOCRIT 45.6 % (34.2-44.1); HEMOGLOBIN 14.6 g/dL (12.0-16.0); LYMPHOCYTES # (AUTO) 1.5 (1.0-3.2); LYMPHOCYTES % 19.8 % (18.0-39.1); MEAN CORPUSCULAR HEMOGLOBIN 25.9 pg (28-32); MEAN CORPUSCULAR VOLUME 80.9 fL (81-99); MONOCYTES # (AUTO) 0.5 (0.2-0.8); MONOCYTES % 6.7 % (4.4-11.3); NEUTROPHILS # (AUTO) 5.6 (2.1-6.9); NEUTROPHILS % 72.1 % (38.7-80.0); PLATELET COUNT 273 x10e3/uL (140-360); RED BLOOD COUNT 5.64 x10e6/uL (3.6-5.1); RED CELL DISTRIBUTION WIDTH 19.5 % (11.7-14.4)
[2021-10-05 02:16] LABS: ALBUMIN 3.6 g/dL (3.5-5.0); ALBUMIN/GLOBULIN RATIO 0.9 (0.8-2.0); ANION GAP 15.3 mmol/L (8-16); CALCIUM 9.1 mg/dL (8.4-10.2); CREATININE, SERUM 0.85 mg/dL (0.57-1.11); POTASSIUM 3.3 mmol/L (3.5-5.1)
[2021-10-05] MEDS: ONDANSETRON HCL INJ 2MG/ML 2ML 2 MG/ML VIAL IV PRN (02:58)
[2021-10-05 04:00] VITALS: BP 105/70
[2021-10-05] MEDS: HYDROMORPHONE 1MG/1ML INJ IV PRN (05:38)
[2021-10-05] MEDS: ONDANSETRON HCL INJ 2MG/ML 2ML 2 MG/ML VIAL IV SCH ×2 (05:39→12:00)
[2021-10-05 08:00] VITALS: BP 105/70
[2021-10-05 08:03] VITALS: BP 103/72
[2021-10-05] MEDS ORDERED: MULTIVITAMINS/MINERALS TAB PO SCH (09:00)
[2021-10-05] MEDS: SUCRALFATE 1 GM/10 ML SUSP PO SCH ×2 (09:16→11:30)
[2021-10-05 12:12] VITALS: BP 102/82
[2021-10-05 16:26] VITALS: BP 90/72
== END 2021-10-05 16:53 | disposition home or self-care (01) | DRG 381 ==
LOC: ER 20:59 → ERHOLD 23:58 → UNDOADMOB 09-30 00:06 → ERHOLD 09-30 00:06 → MED/SURG 09-30 01:38 → MED/SURG3 09-30 17:56 → OBSVTOIN 10-01 14:47
PROVIDERS: ADMIT Internal Medicine; ATTEND Internal Medicine
PROC: 0DB68ZX Excision of Stomach, Via Natural or Artificial Opening Endoscopic, Diagnostic (ICD-10-PCS; principal; 2021-10-02 15:17)
DX: K28.9 Gastrojejunal ulcer, unspecified as acute or chronic, without hemorrhage or perforation (principal); N39.0 Urinary tract infection, site not specified; K29.60 Other gastritis without bleeding; D50.9 Iron deficiency anemia, unspecified; N20.0 Calculus of kidney; K20.90 Esophagitis, unspecified without bleeding; G40.909 Epilepsy, unspecified, not intractable, without status epilepticus; G89.4 Chronic pain syndrome; Z87.442 Personal history of urinary calculi; Z90.49 Acquired absence of other specified parts of digestive tract; Z98.84 Bariatric surgery status; Z90.710 Acquired absence of both cervix and uterus; K91.1 Postgastric surgery syndromes; Y83.2 Surgical operation with anastomosis, bypass or graft as the cause of abnormal reaction of the patient, or of later complication, without mention of misadventure at the time of the procedure
CPT/HCPCS: 36415; 43239; 74018; 74177; 74183; 80048; 80053; 80076; 80307; 81001; 82150; 82607; 82746; 83540; 83690; 84443; 84466; 84702; 85025; 85610; 85730; 88304; 88305; 88313; 88342; 96361; 99284; G0378; J0696; J1170; J1756; J1885; J2001; J2270; J2405; J2550; J2765; J3010; J7030; J7050; J7121; Q9967

== ENCOUNTER 2021-10-24 09:19 | Emergency (ER) | payer BC, MEDICARE, OTHER ==
[~2021-10-24] VITALS: Ht 271.8 cm; Wt 72.1 kg
[~2021-10-24 09:19] MED LIST changes: +CARAFATE1 GM PO; +PANTOPRAZOLE SO40 MG PO; +REGLAN10 MG PO; +ZONEGRAN100 MG PO
[2021-10-24] MEDS ORDERED: ONDANSETRON HCL INJ 2MG/ML 2ML 2 MG/ML VIAL IV STA (09:40)
[2021-10-24] MEDS ORDERED: Morphine 4mg INJECTION 4 MG/ML INJ IV ONE (09:45)
[2021-10-24] MEDS ORDERED: SODIUM CHLORIDE 0.9% 1000ML 1,000 ML IV SCH (09:45)
[2021-10-24] MEDS ORDERED: SODIUM CHLORIDE FLUSH 10 ML SYR IV PRN (09:45)
[2021-10-24 10:09] LABS: BASOPHILS % 0.3 % (0.0-1.0); EOSINOPHILS # (AUTO) 0.1 (0.0-0.4); EOSINOPHILS % 1.2 % (0.0-6.0); HEMATOCRIT 40.3 % (34.2-44.1); HEMOGLOBIN 12.9 g/dL (12.0-16.0); LYMPHOCYTES # (AUTO) 1.2 (1.0-3.2); LYMPHOCYTES % 18.2 % (18.0-39.1); MEAN CORPUSCULAR HEMOGLOBIN 26.3 pg (28-32); MEAN CORPUSCULAR VOLUME 82.2 fL (81-99); MONOCYTES # (AUTO) 0.3 (0.2-0.8); NEUTROPHILS # (AUTO) 4.9 (2.1-6.9); PLATELET COUNT 248 x10e3/uL (140-360); RED CELL DISTRIBUTION WIDTH 18.5 % (11.7-14.4)
[2021-10-24 10:21] LABS: AMPHETAMINES SCREEN,URINE NEGATIVE (NEGATIVE); BENZODIAZEPINES SCREEN,URINE NEGATIVE (NEGATIVE); INR 0.95; PHENCYCLIDINE SCREEN,URINE NEGATIVE (NEGATIVE); PROTHROMBIN TIME 13.6 seconds (11.9-14.5)
[2021-10-24 10:22] LABS: PARTIAL THROMBOPLASTIN TIME 28.9 seconds (23.8-35.5)
[2021-10-24 10:40] LABS: ALBUMIN 3.6 g/dL (3.5-5.0); ALBUMIN/GLOBULIN RATIO 1.1 (0.8-2.0); ANION GAP 12.5 mmol/L (8-16); CALCIUM 8.5 mg/dL (8.4-10.2); CREATININE, SERUM 0.97 mg/dL (0.57-1.11); POTASSIUM 3.5 mmol/L (3.5-5.1)
[2021-10-24 10:41] LABS: CLARITY,URINE TURBID (CLEAR); COLOR,URINE AMBER (YELLOW)
[2021-10-24 10:42] LABS: KETONES,URINE NEGATIVE (NEGATIVE); LEUKOCYTE ESTERASE ,URINE NEGATIVE (NEGATIVE); NITRITE,URINE NEGATIVE (NEGATIVE); PROTEIN,URINE DIPSTICK 2+ (NEGATIVE)
[2021-10-24 10:44] LABS: URINE UROBILINOGEN 0.2 mg/dL (0.2 - 1)
[2021-10-24 10:57] LABS: BACTERIA,URINE MANY /HPF; EPITHELIAL CELLS,URINE MODERATE /LPF; RBC,URINE >50 /HPF (0-5)
[2021-10-24 10:58] LABS: CALCIUM OXALATE CRYSTALS,UR RARE (FEW)
[2021-10-24] MEDS ORDERED: IOPAMIDOL 370 MG/ML 100 ML INFUS..BTL INJ ONE (11:04)
[2021-10-24] MEDS ORDERED: KETOROLAC TROMETHAMINE 30 MG/ML VIAL IV STA (11:26)
[2021-10-24] MEDS ORDERED: ONDANSETRON ODT4 MG PO (12:30)
[2021-10-24] MEDS ORDERED: FLOMAX0.4 MG PO (12:30)
[2021-10-24] MEDS ORDERED: CEFDINIR300 MG PO (12:30)
[2021-10-24] MEDS ORDERED: ACETAMINOPHEN-1 EAC4 PO (12:30)
[2021-10-24 12:44] VITALS: BP 92/67
== END 2021-10-24 12:47 | disposition home or self-care (01) ==
LOC: ER 09:23
DX: R10.31 Right lower quadrant pain (principal); N39.0 Urinary tract infection, site not specified; N13.2 Hydronephrosis with renal and ureteral calculous obstruction; G40.909 Epilepsy, unspecified, not intractable, without status epilepticus; Z98.84 Bariatric surgery status
CPT/HCPCS: 36415; 74177; 80053; 80307; 81001; 84702; 85025; 85610; 85730; 99284; J0696; J1885; J2270; J2405; J7030; Q9967

== ENCOUNTER 2021-11-06 18:27 | Emergency (ER) | payer BC, OTHER ==
[~2021-11-06] VITALS: Ht 271.8 cm; Wt 72.1 kg
[~2021-11-06 18:27] MED LIST changes: +CEFDINIR300 MG PO; +FLOMAX0.4 MG PO
[2021-11-06] MEDS ORDERED: KETOROLAC TROMETHAMINE 30 MG/ML VIAL IV STA (19:04)
[2021-11-06] MEDS ORDERED: ONDANSETRON HCL INJ 2MG/ML 2ML 2 MG/ML VIAL IV STA (19:04)
[2021-11-06 19:19] LABS: BASOPHILS % 0.3 % (0.0-1.0); EOSINOPHILS # (AUTO) 0.2 (0.0-0.4); EOSINOPHILS % 2.5 % (0.0-6.0); HEMATOCRIT 41.9 % (34.2-44.1); HEMOGLOBIN 13.6 g/dL (12.0-16.0); LYMPHOCYTES # (AUTO) 1.9 (1.0-3.2); LYMPHOCYTES % 30.9 % (18.0-39.1); MEAN CORPUSCULAR HEMOGLOBIN 26.8 pg (28-32); MEAN CORPUSCULAR HGB CONC 32.5 g/dL (31-35); MEAN CORPUSCULAR VOLUME 82.6 fL (81-99); MONOCYTES # (AUTO) 0.4 (0.2-0.8); MONOCYTES % 6.4 % (4.4-11.3); NEUTROPHILS # (AUTO) 3.6 (2.1-6.9); NEUTROPHILS % 59.7 % (38.7-80.0); PLATELET COUNT 310 x10e3/uL (140-360); RED BLOOD COUNT 5.07 x10e6/uL (3.6-5.1); RED CELL DISTRIBUTION WIDTH 18.3 % (11.7-14.4)
[2021-11-06] MEDS ORDERED: ONDANSETRON HCL INJ 2MG/ML 2ML 2 MG/ML VIAL ONE (19:21)
[2021-11-06] MEDS ORDERED: KETOROLAC TROMETHAMINE 30 MG/ML VIAL ONE (19:21)
[2021-11-06 19:23] LABS: CLARITY,URINE CLOUDY (CLEAR); COLOR,URINE AMBER (YELLOW)
[2021-11-06 19:24] LABS: KETONES,URINE NEGATIVE (NEGATIVE); LEUKOCYTE ESTERASE ,URINE TRACE (NEGATIVE); NITRITE,URINE NEGATIVE (NEGATIVE); PROTEIN,URINE DIPSTICK 2+ (NEGATIVE); URINE UROBILINOGEN 0.2 mg/dL (0.2 - 1)
[2021-11-06 19:39] LABS: ANION GAP 14.9 mmol/L (8-16); CALCIUM 8.9 mg/dL (8.4-10.2); CREATININE, SERUM 0.75 mg/dL (0.57-1.11); POTASSIUM 3.9 mmol/L (3.5-5.1)
[2021-11-06 19:49] LABS: RBC,URINE >50 /HPF (0-5)
[2021-11-06 19:50] LABS: BACTERIA,URINE MANY /HPF
[2021-11-06 19:51] LABS: AMORPHOUS SEDIMENT,URINE MANY (FEW); EPITHELIAL CELLS,URINE FEW /LPF
[2021-11-06] MEDS ORDERED: Morphine 4mg INJECTION 4 MG/ML INJ IV ONE (21:00)
[2021-11-06] MEDS ORDERED: FENTANYL CITRATE/PF 100MCG/2 ML INJ IV ONE (21:20)
[2021-11-06] MEDS ORDERED: ONDANSETRON ODT4 MG PO (21:34)
[2021-11-06] MEDS ORDERED: HYDROCODON-ACE1 EAC9 PO (21:34)
[2021-11-06] MEDS ORDERED: DITROPAN XL5 MG PO (21:34)
[2021-11-06] MEDS ORDERED: CEFDINIR300 MG PO (21:34)
[2021-11-06 21:54] VITALS: BP 121/87
== END 2021-11-06 21:58 | disposition home or self-care (01) ==
LOC: ER 19:05
DX: R10.31 Right lower quadrant pain (principal); N39.0 Urinary tract infection, site not specified; N20.2 Calculus of kidney with calculus of ureter; K76.0 Fatty (change of) liver, not elsewhere classified; G40.909 Epilepsy, unspecified, not intractable, without status epilepticus; Z98.84 Bariatric surgery status
CPT/HCPCS: 36415; 74176; 80048; 81001; 81025; 85025; 99284; J0696; J1885; J2270; J2405; J3010

== ENCOUNTER 2021-11-21 10:23 | Emergency (ER) | payer OTHER ==
[~2021-11-21] VITALS: Ht 271.8 cm; Wt 72.1 kg
[~2021-11-21 10:23] MED LIST changes: +DITROPAN XL5 MG PO; +HYDROCODON-ACE1 EAC9 PO
[2021-11-21 11:02] LABS: BASOPHILS % 0.5 % (0.0-1.0); EOSINOPHILS # (AUTO) 0.2 (0.0-0.4); EOSINOPHILS % 3.5 % (0.0-6.0); HEMATOCRIT 42.3 % (34.2-44.1); HEMOGLOBIN 13.4 g/dL (12.0-16.0); LYMPHOCYTES # (AUTO) 0.9 (1.0-3.2); LYMPHOCYTES % 14.9 % (18.0-39.1); MEAN CORPUSCULAR HEMOGLOBIN 26.9 pg (28-32); MEAN CORPUSCULAR HGB CONC 31.7 g/dL (31-35); MEAN CORPUSCULAR VOLUME 84.9 fL (81-99); MONOCYTES # (AUTO) 0.4 (0.2-0.8); MONOCYTES % 5.9 % (4.4-11.3); NEUTROPHILS # (AUTO) 4.8 (2.1-6.9); PLATELET COUNT 240 x10e3/uL (140-360); RED BLOOD COUNT 4.98 x10e6/uL (3.6-5.1); RED CELL DISTRIBUTION WIDTH 17.2 % (11.7-14.4)
[2021-11-21 11:14] LABS: CLARITY,URINE CLOUDY (CLEAR); COLOR,URINE YELLOW (YELLOW)
[2021-11-21 11:15] LABS: KETONES,URINE NEGATIVE (NEGATIVE); LEUKOCYTE ESTERASE ,URINE NEGATIVE (NEGATIVE); NITRITE,URINE NEGATIVE (NEGATIVE); PROTEIN,URINE DIPSTICK 1+ (NEGATIVE); URINE UROBILINOGEN 1 mg/dL (0.2 - 1)
[2021-11-21 11:19] LABS: BACTERIA,URINE FEW /HPF; EPITHELIAL CELLS,URINE RARE /LPF; RBC,URINE >50 /HPF (0-5); WBC,URINE (MAN) 0-5 /HPF (0-5)
[2021-11-21 11:20] LABS: AMORPHOUS SEDIMENT,URINE RARE (FEW)
[2021-11-21 11:27] LABS: ALBUMIN 3.7 g/dL (3.5-5.0); ALBUMIN/GLOBULIN RATIO 1.3 (0.8-2.0); CREATININE, SERUM 0.76 mg/dL (0.57-1.11)
[2021-11-21] MEDS ORDERED: IOPAMIDOL 370 MG/ML 100 ML INFUS..BTL INJ ONE (11:46)
[2021-11-21] MEDS ORDERED: ONDANSETRON HCL INJ 2MG/ML 2ML 2 MG/ML VIAL IV STA (13:08)
[2021-11-21] MEDS ORDERED: Morphine 4mg INJECTION 4 MG/ML INJ IV ONE (13:15)
[2021-11-21] MEDS ORDERED: SODIUM CHLORIDE 0.9% 1000ML 1,000 ML IV ONE (13:15)
[2021-11-21] MEDS ORDERED: KETOROLAC TROMETHAMINE 30 MG/ML VIAL IV STA (16:22)
[2021-11-21 16:49] VITALS: BP 137/76
== END 2021-11-21 16:51 | disposition home or self-care (01) ==
LOC: ER 10:30
DX: R10.13 Epigastric pain (principal); N20.1 Calculus of ureter; G40.909 Epilepsy, unspecified, not intractable, without status epilepticus; Z98.84 Bariatric surgery status
CPT/HCPCS: 36415; 74177; 80053; 81001; 83690; 84702; 85025; 99284; J2270; J2405; J7030; Q9967

== ENCOUNTER 2021-12-07 17:01 | Emergency (ER) | payer OTHER ==
[~2021-12-07] VITALS: Ht 271.8 cm; Wt 72.1 kg
[2021-12-07] MEDS ORDERED: ONDANSETRON HCL INJ 2MG/ML 2ML 2 MG/ML VIAL IV STA (17:07)
[2021-12-07] MEDS ORDERED: FAMOTIDINE 20 MG/2 ML VIAL IV STA (17:07)
[2021-12-07] MEDS ORDERED: SODIUM CHLORIDE 0.9% 1000ML 1,000 ML IV STA (17:07)
[2021-12-07 17:33] LABS: BASOPHILS % 0.4 % (0.0-1.0); EOSINOPHILS % 0.4 % (0.0-6.0); HEMATOCRIT 34.5 % (34.2-44.1); HEMOGLOBIN 11.7 g/dL (12.0-16.0); LYMPHOCYTES # (AUTO) 0.9 (1.0-3.2); LYMPHOCYTES % 8.9 % (18.0-39.1); MEAN CORPUSCULAR HEMOGLOBIN 27.9 pg (28-32); MEAN CORPUSCULAR HGB CONC 33.9 g/dL (31-35); MEAN CORPUSCULAR VOLUME 82.3 fL (81-99); MONOCYTES # (AUTO) 0.6 (0.2-0.8); MONOCYTES % 5.7 % (4.4-11.3); NEUTROPHILS # (AUTO) 8.4 (2.1-6.9); NEUTROPHILS % 84.2 % (38.7-80.0); PLATELET COUNT 373 x10e3/uL (140-360); RED BLOOD COUNT 4.19 x10e6/uL (3.6-5.1)
[2021-12-07 18:00] LABS: ALBUMIN 3.5 g/dL (3.5-5.0); ALBUMIN/GLOBULIN RATIO 1.1 (0.8-2.0); CALCIUM 9.1 mg/dL (8.4-10.2); CREATININE, SERUM 0.76 mg/dL (0.57-1.11)
[2021-12-07 19:02] LABS: AMPHETAMINES SCREEN,URINE POSITIVE (NEGATIVE); BENZODIAZEPINES SCREEN,URINE NEGATIVE (NEGATIVE); CLARITY,URINE CLOUDY (CLEAR); COLOR,URINE YELLOW (YELLOW); KETONES,URINE NEGATIVE (NEGATIVE); LEUKOCYTE ESTERASE ,URINE NEGATIVE (NEGATIVE); NITRITE,URINE NEGATIVE (NEGATIVE); PHENCYCLIDINE SCREEN,URINE NEGATIVE (NEGATIVE); PROTEIN,URINE DIPSTICK NEGATIVE (NEGATIVE)
[2021-12-07 19:03] LABS: URINE UROBILINOGEN 0.2 mg/dL (0.2 - 1)
[2021-12-07 19:15] LABS: AMORPHOUS SEDIMENT,URINE MANY (FEW); BACTERIA,URINE MANY /HPF; EPITHELIAL CELLS,URINE FEW /LPF; RBC,URINE 0-5 /HPF (0-5); WBC,URINE (MAN) 0-5 /HPF (0-5)
[2021-12-07] MEDS ORDERED: PEPCID AC10 MG PO (19:21)
[2021-12-07 19:24] VITALS: BP 102/57
[2021-12-07] MEDS ORDERED: IOPAMIDOL 370 MG/ML 100 ML INFUS..BTL INJ ONE (20:31)
== END 2021-12-07 19:31 | disposition home or self-care (01) ==
LOC: ER 17:03
DX: R10.13 Epigastric pain (principal); K92.0 Hematemesis; K27.9 Peptic ulcer, site unspecified, unspecified as acute or chronic, without hemorrhage or perforation
CPT/HCPCS: 36415; 74177; 80053; 80307; 81001; 81025; 83690; 85025; 99283; J2405; J7030; Q9967

== ENCOUNTER 2022-02-25 10:27 | Emergency (ER) | payer OTHER ==
[~2022-02-25] VITALS: Ht 271.8 cm; Wt 72.1 kg
[~2022-02-25 10:27] MED LIST changes: +PEPCID AC10 MG PO
[2022-02-25] MEDS ORDERED: ONDANSETRON HCL INJ 2MG/ML 2ML 2 MG/ML VIAL IV STA (10:44)
[2022-02-25] MEDS ORDERED: SODIUM CHLORIDE 0.9% 1000ML 1,000 ML IV STA (10:44)
[2022-02-25] MEDS ORDERED: KETOROLAC TROMETHAMINE 30 MG/ML VIAL IV STA (10:44)
[2022-02-25 11:12] LABS: BASOPHILS % 0.4 % (0.0-1.0); EOSINOPHILS % 0.2 % (0.0-6.0); HEMATOCRIT 39.8 % (34.2-44.1); HEMOGLOBIN 12.1 g/dL (12.0-16.0); LYMPHOCYTES # (AUTO) 1.1 (1.0-3.2); LYMPHOCYTES % 19.3 % (18.0-39.1); MEAN CORPUSCULAR HEMOGLOBIN 25.5 pg (28-32); MEAN CORPUSCULAR HGB CONC 30.4 g/dL (31-35); MONOCYTES # (AUTO) 0.4 (0.2-0.8); MONOCYTES % 6.1 % (4.4-11.3); NEUTROPHILS # (AUTO) 4.2 (2.1-6.9); NEUTROPHILS % 73.6 % (38.7-80.0); PLATELET COUNT 243 x10e3/uL (140-360); RED BLOOD COUNT 4.74 x10e6/uL (3.6-5.1); RED CELL DISTRIBUTION WIDTH 13.5 % (11.7-14.4)
[2022-02-25 11:14] LABS: COLOR,URINE YELLOW (YELLOW)
[2022-02-25 11:15] LABS: CLARITY,URINE CLOUDY (CLEAR); KETONES,URINE TRACE (NEGATIVE); LEUKOCYTE ESTERASE ,URINE NEGATIVE (NEGATIVE); NITRITE,URINE NEGATIVE (NEGATIVE); PROTEIN,URINE DIPSTICK NEGATIVE (NEGATIVE); URINE UROBILINOGEN 0.2 mg/dL (0.2 - 1)
[2022-02-25 11:23] LABS: BACTERIA,URINE FEW /HPF; EPITHELIAL CELLS,URINE MODERATE /LPF; RBC,URINE 0-5 /HPF (0-5); WBC,URINE (MAN) 0-5 /HPF (0-5)
[2022-02-25 11:38] LABS: ALANINE AMINOTRANSFERASE 20 IU/L (0-55); ALBUMIN 3.6 g/dL (3.5-5.0); ALBUMIN/GLOBULIN RATIO 1.2 (0.8-2.0); ALKALINE PHOSPHATASE 98 IU/L (40-150); ANION GAP 14.9 mmol/L (8-16); BLOOD UREA NITROGEN 9 mg/dL (7-26); BUN/CREATININE RATIO 11 (6-25); CALCIUM 8.8 mg/dL (8.4-10.2); CARBON DIOXIDE 19 mmol/L (22-29); CHLORIDE 110 mmol/L (98-107); CREATINE KINASE 17 IU/L (29-168); CREATININE, SERUM 0.82 mg/dL (0.57-1.11); GLUCOSE 118 mg/dL (74-118); MAGNESIUM 2.1 MG/DL (1.3-2.1); POTASSIUM 3.9 mmol/L (3.5-5.1); SODIUM 140 mmol/L (136-145)
[2022-02-25] MEDS ORDERED: KETOROLAC TROME10 MG PO (13:18)
== END 2022-02-25 14:00 | disposition home or self-care (01) ==
LOC: ER 10:32
DX: R07.89 Other chest pain (principal); R10.32 Left lower quadrant pain; R11.2 Nausea with vomiting, unspecified; G40.909 Epilepsy, unspecified, not intractable, without status epilepticus; Z98.84 Bariatric surgery status
CPT/HCPCS: 36415; 71045; 74176; 80053; 81001; 82550; 82553; 83735; 84484; 85025; 87086; 93005; 99284; J1885; J2405; J7030

== ENCOUNTER 2022-02-26 23:32 | Emergency (ER) | payer OTHER ==
[~2022-02-26] VITALS: Ht 271.8 cm; Wt 72.1 kg
[~2022-02-26 23:32] MED LIST changes: +KETOROLAC TROME10 MG PO
[2022-02-27] MEDS ORDERED: KETOROLAC TROMETHAMINE 60 MG/2 ML VIAL IM ONE (01:15)
[2022-02-27] MEDS ORDERED: ONDANSETRON ODT4 MG PO (01:35)
[2022-02-27] MEDS ORDERED: LACTULOSE20 GM/30 M PO (01:35)
[2022-02-27 01:40] VITALS: BP 111/76
== END 2022-02-27 01:47 | disposition home or self-care (01) ==
LOC: ER 23:37
DX: K59.00 Constipation, unspecified (principal); G40.909 Epilepsy, unspecified, not intractable, without status epilepticus; Z79.899 Other long term (current) drug therapy; Z87.19 Personal history of other diseases of the digestive system; Z90.49 Acquired absence of other specified parts of digestive tract; Z98.84 Bariatric surgery status; Z87.442 Personal history of urinary calculi
CPT/HCPCS: 74019; 99283; J1885

== ENCOUNTER 2022-05-25 00:50 | Emergency (ER) | payer OTHER ==
[~2022-05-25] VITALS: Ht 271.8 cm; Wt 72.1 kg
[~2022-05-25 00:50] MED LIST changes: +LACTULOSE20 GM/30 M PO
[2022-05-25] MEDS ORDERED: SODIUM CHLORIDE 0.9% 1000ML 1,000 ML IV STA (00:54)
[2022-05-25] MEDS ORDERED: ONDANSETRON HCL INJ 2MG/ML 2ML 2 MG/ML VIAL IV STA (01:00)
[2022-05-25] MEDS ORDERED: FAMOTIDINE 20 MG/2 ML VIAL IV STA (01:00)
[2022-05-25 01:20] LABS: BASOPHILS % 0.2 % (0.0-1.0); CLARITY,URINE SL CLOUDY (CLEAR); COLOR,URINE YELLOW (YELLOW); EOSINOPHILS # (AUTO) 0.1 (0.0-0.4); EOSINOPHILS % 1.1 % (0.0-6.0); HEMOGLOBIN 10.2 g/dL (12.0-16.0); KETONES,URINE 2+ (NEGATIVE); LEUKOCYTE ESTERASE ,URINE SMALL (NEGATIVE); LYMPHOCYTES # (AUTO) 2.9 (1.0-3.2); LYMPHOCYTES % 46.5 % (18.0-39.1); MEAN CORPUSCULAR HEMOGLOBIN 24.4 pg (28-32); MEAN CORPUSCULAR HGB CONC 30.9 g/dL (31-35); MEAN CORPUSCULAR VOLUME 78.9 fL (81-99); MONOCYTES # (AUTO) 0.4 (0.2-0.8); NEUTROPHILS # (AUTO) 2.8 (2.1-6.9); NEUTROPHILS % 44.9 % (38.7-80.0); NITRITE,URINE NEGATIVE (NEGATIVE); PLATELET COUNT 218 x10e3/uL (140-360); PROTEIN,URINE DIPSTICK NEGATIVE (NEGATIVE); RED BLOOD COUNT 4.18 x10e6/uL (3.6-5.1); RED CELL DISTRIBUTION WIDTH 19.9 % (11.7-14.4)
[2022-05-25 01:21] LABS: AMPHETAMINES SCREEN,URINE NEGATIVE (NEGATIVE); BENZODIAZEPINES SCREEN,URINE POSITIVE (NEGATIVE); PHENCYCLIDINE SCREEN,URINE NEGATIVE (NEGATIVE); URINE UROBILINOGEN 1 mg/dL (0.2 - 1)
[2022-05-25 01:25] LABS: BACTERIA,URINE FEW /HPF; EPITHELIAL CELLS,URINE MODERATE /LPF; MUCUS,URINE MODERATE (RARE); RBC,URINE 0-5 /HPF (0-5)
[2022-05-25 01:38] LABS: ALBUMIN 2.5 g/dL (3.5-5.0); ALBUMIN/GLOBULIN RATIO 0.8 (0.8-2.0); ANION GAP 13.2 mmol/L (8-16); CALCIUM 7.9 mg/dL (8.4-10.2); CREATININE, SERUM 0.65 mg/dL (0.57-1.11); POTASSIUM 3.2 mmol/L (3.5-5.1)
[2022-05-25] MEDS ORDERED: KETOROLAC TROMETHAMINE 30 MG/ML VIAL IV STA (01:44)
[2022-05-25] MEDS ORDERED: KETOROLAC TROMETHAMINE 30 MG/ML VIAL ONE (02:01)
== END 2022-05-25 01:51 | disposition home or self-care (01) ==
LOC: ER 00:53
DX: R10.13 Epigastric pain (principal); G40.909 Epilepsy, unspecified, not intractable, without status epilepticus; Z87.442 Personal history of urinary calculi; Z98.84 Bariatric surgery status
CPT/HCPCS: 36415; 80053; 80307; 80320; 81001; 81025; 83690; 85025; 99283; J1885; J2405; J7030

== ENCOUNTER 2022-07-10 00:03 | Emergency (ER) | payer OTHER ==
[~2022-07-10] VITALS: Ht 149.9 cm; Wt 72.1 kg
[2022-07-10] MEDS ORDERED: ONDANSETRON HCL INJ 2MG/ML 2ML 2 MG/ML VIAL IV STA (00:45)
[2022-07-10] MEDS ORDERED: SODIUM CHLORIDE 0.9% 1000ML 1,000 ML IV STA (00:45)
[2022-07-10] MEDS ORDERED: FAMOTIDINE 20 MG/2 ML VIAL IV STA (00:45)
[2022-07-10 00:55] LABS: BASOPHILS % 0.4 % (0.0-1.0); EOSINOPHILS # (AUTO) 0.1 (0.0-0.4); EOSINOPHILS % 2.1 % (0.0-6.0); HEMATOCRIT 27.1 % (34.2-44.1); HEMOGLOBIN 8.6 g/dL (12.0-16.0); LYMPHOCYTES # (AUTO) 1.7 (1.0-3.2); LYMPHOCYTES % 33.5 % (18.0-39.1); MEAN CORPUSCULAR HEMOGLOBIN 26.7 pg (28-32); MEAN CORPUSCULAR HGB CONC 31.7 g/dL (31-35); MEAN CORPUSCULAR VOLUME 84.2 fL (81-99); MONOCYTES # (AUTO) 0.4 (0.2-0.8); MONOCYTES % 7.4 % (4.4-11.3); NEUTROPHILS # (AUTO) 2.9 (2.1-6.9); NEUTROPHILS % 56.4 % (38.7-80.0); PLATELET COUNT 305 x10e3/uL (140-360); RED BLOOD COUNT 3.22 x10e6/uL (3.6-5.1); RED CELL DISTRIBUTION WIDTH 15.9 % (11.7-14.4)
[2022-07-10 00:58] LABS: AMPHETAMINES SCREEN,URINE NEGATIVE (NEGATIVE); BENZODIAZEPINES SCREEN,URINE NEGATIVE (NEGATIVE); CLARITY,URINE CLOUDY (CLEAR); COLOR,URINE YELLOW (YELLOW); KETONES,URINE 1+ (NEGATIVE); LEUKOCYTE ESTERASE ,URINE TRACE (NEGATIVE); NITRITE,URINE NEGATIVE (NEGATIVE); PHENCYCLIDINE SCREEN,URINE NEGATIVE (NEGATIVE); PROTEIN,URINE DIPSTICK 1+ (NEGATIVE)
[2022-07-10 01:00] LABS: BACTERIA,URINE FEW /HPF; EPITHELIAL CELLS,URINE RARE /LPF; RBC,URINE 0-5 /HPF (0-5); WBC,URINE (MAN) 0-5 /HPF (0-5)
[2022-07-10] MEDS ORDERED: DICYCLOMINE HCL 20 MG/2 ML VIAL IM ONE (01:00)
[2022-07-10 01:01] LABS: AMORPHOUS SEDIMENT,URINE MANY (FEW)
[2022-07-10] MEDS ORDERED: Morphine 4mg INJECTION 4 MG/ML INJ ONE (01:45)
[2022-07-10 05:28] LABS: ALBUMIN 2.8 g/dL (3.5-5.0); ANION GAP 12.2 mmol/L (8-16); CALCIUM 8.6 mg/dL (8.4-10.2); CREATININE, SERUM 0.63 mg/dL (0.57-1.11); POTASSIUM 3.2 mmol/L (3.5-5.1)
[2022-07-10 05:46] VITALS: BP 101/60
== END 2022-07-10 02:00 | disposition home or self-care (01) ==
LOC: ER 00:18
DX: R10.13 Epigastric pain (principal); Z87.442 Personal history of urinary calculi; G40.909 Epilepsy, unspecified, not intractable, without status epilepticus
CPT/HCPCS: 36415; 80053; 80307; 81001; 81025; 83690; 85025; 99284; J0500; J2270; J2405; J7030

== ENCOUNTER 2022-07-24 22:59 | Emergency (ER) | payer OTHER ==
[~2022-07-24] VITALS: Ht 149.9 cm; Wt 38.6 kg
[2022-07-24 23:44] LABS: BASOPHILS % 0.4 % (0.0-1.0); EOSINOPHILS # (AUTO) 0.1 (0.0-0.4); EOSINOPHILS % 2.8 % (0.0-6.0); HEMOGLOBIN 8.1 g/dL (12.0-16.0); LYMPHOCYTES # (AUTO) 1.5 (1.0-3.2); LYMPHOCYTES % 30.6 % (18.0-39.1); MEAN CORPUSCULAR HEMOGLOBIN 25.6 pg (28-32); MEAN CORPUSCULAR HGB CONC 31.2 g/dL (31-35); MEAN CORPUSCULAR VOLUME 82.3 fL (81-99); MONOCYTES # (AUTO) 0.3 (0.2-0.8); MONOCYTES % 6.2 % (4.4-11.3); NEUTROPHILS % 59.8 % (38.7-80.0); PLATELET COUNT 414 x10e3/uL (140-360); RED BLOOD COUNT 3.16 x10e6/uL (3.6-5.1); RED CELL DISTRIBUTION WIDTH 14.8 % (11.7-14.4)
[2022-07-24] MEDS ORDERED: ONDANSETRON HCL INJ 2MG/ML 2ML 2 MG/ML VIAL IV STA (23:50)
[2022-07-24] MEDS ORDERED: FAMOTIDINE 20 MG/2 ML VIAL IV STA (23:50)
[2022-07-24 23:54] LABS: AMPHETAMINES SCREEN,URINE NEGATIVE (NEGATIVE); BACTERIA,URINE FEW /HPF; BENZODIAZEPINES SCREEN,URINE NEGATIVE (NEGATIVE); CLARITY,URINE SL CLOUDY (CLEAR); COLOR,URINE AMBER (YELLOW); EPITHELIAL CELLS,URINE RARE /LPF; KETONES,URINE TRACE (NEGATIVE); LEUKOCYTE ESTERASE ,URINE NEGATIVE (NEGATIVE); MUCUS,URINE MODERATE (RARE); NITRITE,URINE NEGATIVE (NEGATIVE); PHENCYCLIDINE SCREEN,URINE NEGATIVE (NEGATIVE); PROTEIN,URINE DIPSTICK NEGATIVE (NEGATIVE); RBC,URINE 0-5 /HPF (0-5); URINE UROBILINOGEN 1 mg/dL (0.2 - 1); WBC,URINE (MAN) 0-5 /HPF (0-5)
[2022-07-24] MEDS ORDERED: FAMOTIDINE 20 MG/2 ML VIAL IV ONE (23:55)
[2022-07-24] MEDS ORDERED: ONDANSETRON HCL INJ 2MG/ML 2ML 2 MG/ML VIAL ONE (23:55)
[2022-07-24] MEDS ORDERED: SODIUM CHLORIDE 0.9% 1000ML 1,000 ML ONE (23:55)
[2022-07-25] MEDS ORDERED: SODIUM CHLORIDE 0.9% 1000ML 1,000 ML IV SCH
[2022-07-25 00:02] LABS: ALBUMIN 2.6 g/dL (3.5-5.0); ALBUMIN/GLOBULIN RATIO 0.9 (0.8-2.0); ANION GAP 9.8 mmol/L (8-16); CALCIUM 8.4 mg/dL (8.4-10.2); CREATININE, SERUM 0.54 mg/dL (0.57-1.11); POTASSIUM 3.8 mmol/L (3.5-5.1)
[2022-07-25] MEDS ORDERED: LIDOCAINE VISC 2% SOLN 15 ML UDC ONE (00:38)
[2022-07-25] MEDS ORDERED: BELLADONNA ALK/PHENOBARBITAL 5 ML UDC ONE (00:39)
[2022-07-25] MEDS ORDERED: MAGNESIUM/ALUMINUM/SIMETHICONE 30 ML UDC ONE (00:39)
[2022-07-25] MEDS ORDERED: DONNATAL/LIDOCAINE/MAALOX 30 ML SUSP PO ONE (00:45)
== END 2022-07-25 01:28 | disposition left against medical advice (07) ==
LOC: ER 23:04
DX: R11.2 Nausea with vomiting, unspecified (principal); R10.13 Epigastric pain; G89.29 Other chronic pain; G40.909 Epilepsy, unspecified, not intractable, without status epilepticus; Z98.84 Bariatric surgery status
CPT/HCPCS: 36415; 80053; 80307; 81001; 81025; 85025; 99284; J2405; J7030